=== PATIENT | female | born 1970 | race Two or more races ===

== ENCOUNTER 2022-09-22 02:01 | Emergency (ER) | payer OTHER ==
[2022-09-22] MEDS ORDERED: ACE3T PO (05:53)
[2022-09-22] MEDS ORDERED: CYCL-837 PO (05:53)
[2022-09-22] MEDS ORDERED: KETOROLAC TROMETH 60MG/2ML VIAL IM ONE (06:00)
[2022-09-22 06:35] VITALS: BP 129/67
== END 2022-09-22 06:38 | disposition home or self-care (01) ==
LOC: ER 02:01
DX: S16.1XXA Strain of muscle, fascia and tendon at neck level, initial encounter (principal); X58.XXXA Exposure to other specified factors, initial encounter; Y93.89 Activity, other specified; Y92.89 Other specified places as the place of occurrence of the external cause; Y99.8 Other external cause status
CPT/HCPCS: 96372; 99283; J1885